=== PATIENT | male | born 1980 | race Caucasian/White ===

== ENCOUNTER 2019-02-25 18:57 | Emergency (ER) | payer OTHER, SELFPAY ==
[2019-02-25 19:06] VITALS: BP 140/82; PULSE 82; RESP 16; TEMP 36.9; O2SAT 100
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
[2019-02-25 20:15] VITALS: BP 116/78; PULSE 80; RESP 18; O2SAT 98
== END 2019-02-25 20:15 | disposition home or self-care (01) ==
PROVIDERS: Emergency Provider Emergency Medicine
DX: F07.81 Postconcussional syndrome (principal)
CPT/HCPCS: 70450; 99282; 99284

== ENCOUNTER → 2021-04-25 09:43 | Outpatient (CLI) | payer OTHER, SELFPAY ==
[2021-04-25 20:11] LABS: COVID19 - ORCAS (NP or Nasal) Negative (Negative)
== END ==
PROVIDERS: PCP Physician Assistant Medical; Visit Provider Family Medicine
DX: Z20.822 Contact with and (suspected) exposure to COVID-19 (principal)
CPT/HCPCS: U0003

== ENCOUNTER → 2021-07-08 08:51 | Outpatient (CLI) | payer OTHER, SELFPAY ==
[2021-07-08 22:44] LABS: COVID19 - ORCAS (NP or Nasal) POSITIVE (Negative)
== END ==
PROVIDERS: PCP Physician Assistant Medical; Visit Provider Physician Assistant Medical
DX: U07.1 COVID-19 (principal); Z20.822 Contact with and (suspected) exposure to COVID-19
CPT/HCPCS: U0003